=== PATIENT | female | born 1960 | race Caucasian/White ===

== ENCOUNTER 2024-03-12 17:44 | Emergency (ER) | payer OTHER, MEDICARE, SELFPAY ==
[2024-03-12 17:58] VITALS: BP 153/127; PULSE 67; RESP 18; TEMP 35.9; O2SAT 98; BMI 35.3
--- NOTE | 2024-03-12 18:20 | XR_ITS ---
Patient: DELANEY KELLY Facility:?[facility] Patient ID:?[id number] Site Patient ID:?[id number]. Site :?[id number] Study:?XRay-Extremity Right FOOT 3 VIEWS-03/12/2024 6:34:23 PM Ordering Physician:IBRAHIMA Final Report: INDICATION: Injury. COMPARISON: None. FINDINGS/IMPRESSION: Right foot, three views. Soft tissue swelling is present over the forefoot. There are acute appearing nondisplaced fractures of the necks of the 2nd, 3rd, and 4th metatarsals with mild plantar and lateral angulation of the distal fragments. No dislocations are noted. There is moderate to severe hallux valgus with mild lateral subluxation of the great toe on the 1st metatarsal head. There are postoperative changes of arthrodesis and screw fixation of the 1st TMT joint, along with a transverse screw extending through the proximal shaft of the 1st metatarsal into the 2nd metatarsal base. Mild midfoot degenerative changes are present and there is a small plantar calcaneal spur. Dictated by Carlito Aguirre MD @ 03/12/2024 6:57:26 PM Dictated by: Carlito Aguirre MD @ 03/12/2024 18:57:42 Signed by:?Carlito Aguirre MD @03/12/2024 6:57:42 PM (Electronic Signature)
--- NOTE | 2024-03-12 18:21 | ED.LOWEXIN ---
HPI - Extremity Injury (Lower) General Chief Complaint: Extremity Pain/Injury, Lower Stated Complaint: possible broken foot Time Seen by Provider: 03/12/24 17:47 History of Present Illness HPI Narrative: This 63-year-old female comes in reporting injury to her right foot. She states that on occasion her right knee can lock up and this happened prior to arrival. She fell injuring her right foot. She denies having any other injury. She did not hit her head or have loss of consciousness. She states that she does not have any particular pain except when attempting to bear weight at which time she has lots of pain. Related Data Home Medications Medication Instructions Recorded Confirmed Advair Diskus 03/12/24 Eliquis 03/12/24 Prilosec 03/12/24 Synthroid 03/12/24 albuterol 03/12/24 digoxin 03/12/24 gabapentin 03/12/24 Allergies Allergy/AdvReac Type Severity Reaction Status Date / Time Penicillins Allergy Severe Anaphylaxis Verified 03/12/24 18:03 codeine Allergy Intermediate Verified 03/12/24 18:03 Review of Systems Status of ROS: Reports: 10 or more systems reviewed and unremarkable except as noted in History and below Narrative: Constitutional: No fevers, no weight gain or loss. Eyes: No discharge. No vision changes. HENT: No congestion, no sore throat, no ear pain. Cardiovascular: No chest pain, no palpitations. Respiratory: No shortness of breath, no wheezes, no cough. Gastrointestinal: No abdominal pain, no vomiting, no diarrhea. Genitourinary: No dysuria, no hematuria. Musculoskeletal: Normal range of motion. Skin: No rashes, no pruritis. Neurological: No dizziness, weakness, sensory change, speech change. Endo/Heme/Allergies: No bruising or bleeding. No polydipsia. Pysch: no suicidality, no anxiety, no insomnia. All other systems reviewed and are negative. Exam Narrative: Exam Narrative: Constitutional: Well-developed, well-nourished, no acute distress. HEENT: Normocephalic, atraumatic. Neck: Normal range of motion. Nontender. Supple. Heart: Intact distal pulses. Lungs: No chest discomfort. No wheezes, rhonchi, or rales. Abdomen: Nontender. Back: Normal range of motion. Extremities: Tenderness on the distal portion of the right foot on the anterior and inferior surface. No sign of deformity except for chronic hallux valgus of the great toe. Skin: Intact. No rash. Warm. No erythema or pallor. Neurologic: No altered sensation. No weakness. Alert and oriented. Psychiatric: No suicidality. No anxiety or depression. No insomnia. Nursing notes and vitals signs are reviewed. Const: Vital Signs, click to edit/add: Vital Signs - 24 hr 03/12/24 17:58 Temperature 96.6 F L Pulse Rate [Pulse Oximeter] 67 Respiratory Rate 18 Blood Pressure [Le ft Upper Arm] 153/127 H Pulse Oximetry 98 Oxygen Delivery Me thod Room Air Course Vital Signs Vital signs: Initial Vital Signs Temperature 96.6 F L 03/12/24 17:58 Temperature Source Temporal Artery Scan 03/12/24 17:58 Pulse Rate 67 03/12/24 17:58 Respiratory Rate 18 03/12/24 17:58 Blood Pressure 153/127 H 03/12/24 17:58 Blood Pressure Mean 135 H 03/12/24 17:58 Blood Pressure Position Supine 03/12/24 17:58 Pulse Oximetry 98 03/12/24 17:58 Oxygen Delivery Method Room Air 03/12/24 17:58 Vital Signs Temperature 96.6 F L 03/12/24 17:58 Pulse Rate 67 03/12/24 17:58 Respiratory Rate 18 03/12/24 17:58 Blood Pressure 153/127 H 03/12/24 17:58 Pulse Oximetry 98 03/12/24 17:58 Oxygen Delivery Method Room Air 03/12/24 17:58 Temperature 96.6 F L 03/12/24 17:58 Pulse Rate 67 03/12/24 17:58 Respiratory Rate 18 03/12/24 17:58 Blood Pressure 153/127 H 03/12/24 17:58 Pulse Oximetry 98 03/12/24 17:58 Oxygen Delivery Method Room Air 03/12/24 17:58 MDM - Extremity Injury (Lower) MDM Narrative Medical decision making narrative: This patient comes in with an injury to her right foot as described above. X-ray imaging show suspicion for nondisplaced fractures of the distal portion of the 2nd 3rd and 4th metatarsals. Radiology report also confirms this diagnosis. The patient is not having any pain except with movement of her foot or with any attempt at weight-bearing. A posterior splint was applied and the patient received crutches. [place] and will follow up with Podiatry or Orthopedics for further management. Imaging Data XR R foot: Radiologist's impression: Soft tissue swelling is present over the forefoot. There are acute appearing nondisplaced fractures of the necks of the 2nd, 3rd, and 4th metatarsals with mild plantar and lateral angulation of the distal fragments. No dislocations are noted. There is moderate to severe hallux valgus with mild lateral subluxation of the great toe on the 1st metatarsal head. There are postoperative changes of arthrodesis and screw fixation of the 1st TMT joint, along with a transverse screw extending through the proximal shaft of the 1st metatarsal into the 2nd metatarsal base. Mild midfoot degenerative changes are present and there is a small plantar calcaneal spur. Discharge Plan Discharge Clinical Impression: Foot fracture, right Patient Disposition: Home, Self-Care Condition: Stable Additional Instructions: Wear splint and use crutches for ambulating. Follow up with Podiatry or Orthopedic Clinic for ongoing management. Prescriptions: No Action Eliquis albuterol Advair Diskus digoxin Synthroid Prilosec gabapentin Stand Alone Forms: [employer] Info Instructions
== END 2024-03-12 20:09 | disposition home or self-care (01) ==
LOC: ED 20:07
PROVIDERS: Emergency Provider Emergency Medicine Emergency Medical Services
DX: S92.314A Nondisplaced fracture of first metatarsal bone, right foot, initial encounter for closed fracture (principal); W18.30XA Fall on same level, unspecified, initial encounter
CPT/HCPCS: 73630; 99283; 99284